=== PATIENT | male | born 1985 | race Caucasian/White ===

== ENCOUNTER → 2016-07-02 | Outpatient (REF) | LOC: WSOH 08:30 | DX: Z11.1 Encounter for screening for respiratory tuberculosis (principal) ==

== ENCOUNTER → 2016-07-04 | Outpatient (REF) | LOC: WSOH 08:28 | DX: Z00.00 Encounter for general adult medical examination without abnormal findings (principal) ==

== ENCOUNTER → 2016-07-11 | Outpatient (REF) | LOC: WSOH 08:40 | DX: Z11.1 Encounter for screening for respiratory tuberculosis (principal) ==

== ENCOUNTER → 2016-07-20 | Outpatient (REF) | LOC: WSOH 08:40 | DX: Z23 Encounter for immunization (principal) ==